=== PATIENT | female | born 1970 | race Caucasian/White ===

== ENCOUNTER 2017-11-30 19:15 | Emergency (ER) | payer OTHER ==
[2017-11-30 19:43] VITALS: BP 153/101; PULSE 88; TEMP 98; BMI 28.2
[2017-11-30] MEDS ORDERED: RABIES IMMUNE GLOBULIN 300 UNITS/2 ML VIAL IM ONE (19:44)
--- NOTE | 2017-11-30 19:44 | PDOC ---
Rapid Medical Evaluation Chief Complaint: Bite Medical Evaluation: 11/30/17 19:41 I have performed a brief in-person evaluation of this patient. The patient presents with a chief complaint of: coyote bite, patient utd with tetanus Pertinent physical exam findings: 3 puncture wounds to left posterior leg I have ordered the following: rabies shot The patient will proceed to the ED for further evaluation. Discharge Disposition - Diagnosis Animal bite - Referrals - Patient Instructions - Post Discharge Activity
[2017-11-30] MEDS ORDERED: IBUPROFEN 600 MG TABLET (FP) PO ONE (20:23)
[2017-11-30] MEDS ORDERED: CLINDAMYCIN HCL 150 MG CAPSULE (FP) ONE (20:25)
[2017-11-30] MEDS ORDERED: CLINDAMYCIN HCL 150 MG CAPSULE (FP) PO ONE (20:32)
[2017-11-30] MEDS ORDERED: RABIES VACCINE (PCEC)/PF 2.5 UNIT/VIAL IM ONE (20:33)
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
== END 2017-11-30 21:34 | disposition home or self-care (01) ==
LOC: JER 19:15
PROC: 3E0234Z Introduction of Serum, Toxoid and Vaccine into Muscle, Percutaneous Approach (ICD-10-PCS; principal; 2017-11-30)
PROC: 3E0234Z Introduction of Serum, Toxoid and Vaccine into Muscle, Percutaneous Approach (ICD-10-PCS; 2017-11-30)
DX: S71.151A Open bite, right thigh, initial encounter (principal); W64.XXXA Exposure to other animate mechanical forces, initial encounter; Y93.K1 Activity, walking an animal; Y92.89 Other specified places as the place of occurrence of the external cause; Y99.8 Other external cause status
CPT/HCPCS: 90375; 90675; 99281-25

== ENCOUNTER 2017-12-03 10:53 | Emergency (ER) | payer OTHER ==
[2017-12-03 11:04] VITALS: BP 131/84; PULSE 61; TEMP 97.9; BMI 29.0
[2017-12-03] MEDS ORDERED: RABIES VACCINE (PCEC)/PF 2.5 UNIT/VIAL IM ONE (11:17)
--- NOTE | 2017-12-03 11:48 | PDOC ---
History of Present Illness - General Chief Complaint: Revisit,Rabies Injection Stated Complaint: RABIES SHOT, FOLLOW UP Time Seen by Provider: 12/03/17 11:28 - History of Present Illness Initial Comments: 12/03/17 11:37 CHIEF COMPLAINT: HISTORY OF PRESENT ILLNESS: No recent travel or sick contacts. PAST MEDICAL HISTORY: Denies past medical history FAMILY HISTORY: Denies SOCIAL HISTORY: Lives at home with ____. Occupation: . Denies tobacco, alcohol, illicit drug use. SURGICAL HISTORY: Denies ALLERGIES: No known drug allergies REVIEW OF SYSTEMS General/Constitutional: Denies fever or chills. Denies weakness, weight change. HEENT: Denies change in vision. Denies ear pain or discharge. Denies sore throat. Cardiovascular: Denies chest pain or shortness of breath. Respiratory: Denies cough, wheezing, or hemoptysis. Gastrointestinal: Denies nausea, vomiting, diarrhea or constipation. Denies rectal bleeding. Genitourinary: Denies dysuria, frequency, or change in urination. Musculoskeletal: Denies joint or muscle swelling or pain. Denies neck or back pain. Skin and breasts: Denies rash or easy bruising. Neurologic: Denies headache, vertigo, loss of consciousness, or loss of sensation. Psychiatric: Denies depression or anxiety. Endocrine: Denies increased thirst. Denies abnormal weight change. Hematologic/Lymphatic: Denies anemia, easy bleeding, or history of blood clots. Allergic/Immunologic: Denies hives or skin allergy. Denies latex allergy. PHYSICAL EXAM General Appearance: Well-appearing, appropriately dressed. No apparent distress , no intoxication. HEENT: EOMI, PERRLA, normal ENT inspection, normal voice, TMs normal, pharynx normal. No conjunctival pallor. No photophobia, scleral icterus. Neck: Supple. Trachea midline. No tenderness, rigidity, carotid bruit, stridor , lymphadenopathy, or thyromegaly. Respiratory/Chest: Lungs CTAB. No shortness of breath, chest tenderness, respiratory distress, accessory muscle use. No crackles, rales, rhonchi, stridor , wheezing, dullness Cardiovascular: RRR. S1, S2. No JVD, murmur, bradycardia, tachycardia. Vascular Pulses: Dorsalis-Pedis (R): 2+, Dorsalis-Pedis (L): 2+ Gastrointestinal/Abdominal: Normal bowel sounds. Abdomen soft, non-distended. No tenderness or rebound tenderness. No organomegaly, pulsatile mass, guarding , hernia, hepatomegaly, splenomegaly. Lymphatic: No adenopathy, tenderness. Musculoskeletal/Extremities: Normal inspection. FROM of all extremities, normal capillary refill. Pelvis Stable. No CVA tenderness. No tenderness to extremities, pedal edema, swelling, erythema or deformity. Integumentary: Appropriate color, dry, warm. 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 Fully oriented, alert. Appropriate mood/affect. Motor strength 5/5. No appreciable EOM palsy, facial droop or sensory deficit. Past History - Past Medical History Allergies/Adverse Reactions: Allergies Allergy/AdvReac Type Severity Reaction Status Date / Time Cephalosporins Allergy Verified 12/03/17 11:04 Penicillins Allergy Verified 12/03/17 11:04 Home Medications: Ambulatory Orders Clindamycin [Cleocin -] 300 mg PO TID #21 capsule 11/30/17 Cyclobenzaprine HCl 10 mg PO HS PRN #7 tablet 12/03/17 Naproxen Sodium [Aleve] 220 mg PO BID #14 tablet 12/03/17 COPD: No Other medical history: PATIENT DENIES MEDICAL HX - Suicide/Smoking/Psychosocial Hx Smoking History: Never smoked Have you smoked in the past 12 months: No Hx Alcohol Use: Yes Drug/Substance Use Hx: No *Physical Exam - Vital Signs Last Vital Signs Temp Pulse Resp BP Pulse Ox 97.9 F 61 16 131/84 95 12/03/17 11:01 12/03/17 11:01 12/03/17 11:01 12/03/17 11:01 12/03/17 11:01 *DC/Admit/Observation/Transfer Diagnosis at time of Disposition: Rabies, need for prophylactic vaccination against - Discharge Dispostion Disposition: HOME Condition at time of disposition: Stable Admit: No - Prescriptions Prescriptions: Cyclobenzaprine HCl 10 mg PO HS PRN #7 tablet PRN Reason: Muscle Spasms Naproxen Sodium [Aleve] 220 mg PO BID #14 tablet - Referrals Referrals: Dwight Sheppard [Primary Care Provider] - - Patient Instructions Printed Discharge Instructions: DI for Rabies Vaccine, DI for Muscle Strain Additional Instructions: Please take medication as prescribed; do not drink alcohol, drive, or operate machinery while taking cyclobenzaprine. If your symptoms do not improve in 5-7 days, please follow up with an orthopedics for further evaluation and a possible MRI or physical therapy. If you experience any loss of sensation to your extremities, any loss of bowel or bladder function, any swelling or increased pain to your leg, please return to the ER. - Post Discharge Activity
== END 2017-12-03 12:05 | disposition home or self-care (01) ==
LOC: JERFT 10:53
DX: Z23 Encounter for immunization (principal); Z20.3 Contact with and (suspected) exposure to rabies
CPT/HCPCS: 90675; 99281-25

== ENCOUNTER 2017-12-05 09:16 | Emergency (ER) | payer OTHER ==
[2017-12-05 09:34] VITALS: BP 150/82; PULSE 70; TEMP 98.4; BMI 29.0
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
== END 2017-12-05 11:08 | disposition home or self-care (01) ==
LOC: JERFT 09:16
PROC: 3E0234Z Introduction of Serum, Toxoid and Vaccine into Muscle, Percutaneous Approach (ICD-10-PCS; principal; 2017-12-05)
DX: S91.352D Open bite, left foot, subsequent encounter (principal); W64.XXXD Exposure to other animate mechanical forces, subsequent encounter
CPT/HCPCS: 99281-25

== ENCOUNTER 2017-12-06 21:22 | Emergency (ER) | payer OTHER ==
[2017-12-06 21:34] VITALS: BP 145/99; PULSE 91; TEMP 98.7; BMI 30.9
--- NOTE | 2017-12-06 22:15 | PDOC ---
History of Present Illness - General Chief Complaint: Revisit,Rabies Injection Stated Complaint: RE VISIT/RABBIES SHOT Time Seen by Provider: 12/06/17 21:38 Past History - Past Medical History Allergies/Adverse Reactions: Allergies Allergy/AdvReac Type Severity Reaction Status Date / Time Cephalosporins Allergy Verified 12/06/17 21:31 Penicillins Allergy Verified 12/06/17 21:31 Home Medications: Ambulatory Orders Famotidine [Pepcid] 20 mg PO BID #20 tablet 12/05/17 COPD: No Other medical history: Pt denies - Suicide/Smoking/Psychosocial Hx Smoking History: Never smoked Have you smoked in the past 12 months: No Information on smoking cessation initiated: No Hx Alcohol Use: No Drug/Substance Use Hx: No Substance Use Type: None *Physical Exam - Vital Signs Last Vital Signs Temp Pulse Resp BP Pulse Ox 98.7 F 91 H 18 145/99 97 12/06/17 21:31 12/06/17 21:31 12/06/17 21:31 12/06/17 21:31 12/06/17 21:31 *DC/Admit/Observation/Transfer Diagnosis at time of Disposition: Rabies, need for prophylactic vaccination against - Discharge Dispostion Disposition: HOME Condition at time of disposition: Stable Admit: No - Referrals - Patient Instructions Printed Discharge Instructions: DI for Rabies Vaccine Additional Instructions: You came for your rabies vaccine today. The immunoglobulin difference was made up today and you have a shot given in your foot. Please return for your fourth shot a day ahead of schedule since he returned early today. Return to emergency department if you have fevers, chills, or have any changes in your symptoms. - Post Discharge Activity
[2017-12-06] MEDS ORDERED: RABIES IMMUNE GLOBULIN 300 UNITS/2 ML VIAL ONE (22:39)
== END 2017-12-06 23:01 | disposition home or self-care (01) ==
LOC: JER 21:22
PROC: 3E0134Z Introduction of Serum, Toxoid and Vaccine into Subcutaneous Tissue, Percutaneous Approach (ICD-10-PCS; principal; 2017-12-06)
DX: Z23 Encounter for immunization (principal); Z20.3 Contact with and (suspected) exposure to rabies; Z88.0 Allergy status to penicillin; Z88.8 Allergy status to other drugs, medicaments and biological substances
CPT/HCPCS: 99281-25

== ENCOUNTER 2017-12-14 16:24 | Emergency (ER) | payer OTHER ==
[2017-12-14 16:32] VITALS: BP 139/94; PULSE 64; TEMP 98; BMI 30.7
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
[2017-12-14] MEDS ORDERED: RABIES VACCINE (PCEC)/PF 2.5 UNIT/VIAL IM ONE (16:45)
--- NOTE | 2017-12-14 17:09 | PDOC ---
History of Present Illness - General Chief Complaint: Revisit,Rabies Injection Stated Complaint: RABIES SHOT Time Seen by Provider: 12/14/17 16:34 History Source: Patient Exam Limitations: No Limitations - History of Present Illness Initial Comments: 12/14/17 17:03 Patient here for fourth and final rabies vaccination. Wound is healing well, patient reports that she did not complete the antibiotics that were prescribed to her. There is no erythema, edema or secondary signs of infection. Severity: mild Past History - Past Medical History Allergies/Adverse Reactions: Allergies Allergy/AdvReac Type Severity Reaction Status Date / Time Cephalosporins Allergy Verified 12/14/17 16:32 Penicillins Allergy Verified 12/14/17 16:32 Home Medications: Ambulatory Orders Famotidine [Pepcid] 20 mg PO BID #20 tablet 12/05/17 COPD: No - Suicide/Smoking/Psychosocial Hx Smoking History: Never smoked Have you smoked in the past 12 months: No Hx Alcohol Use: No Drug/Substance Use Hx: No Substance Use Type: None Review of Systems - Review of Systems Constitutional: No: Symptoms Reported, Chills, Diaphoresis, Fever, Night Sweats Integumentary: No: Symptoms Reported, Erythema Neurological: No: Symptoms reported Hematologic/Lymphatic: No: Symptoms Reported All Other Systems: Reviewed and Negative *Physical Exam - Vital Signs Last Vital Signs Temp Pulse Resp BP Pulse Ox 98.0 F 64 18 139/94 98 12/14/17 16:29 12/14/17 16:29 12/14/17 16:29 12/14/17 16:29 12/14/17 16:29 - Physical Exam General Appearance: Yes: Appropriately Dressed. No: Apparent Distress Neck: negative: Tender lateral, Tender midline Respiratory/Chest: positive: Lungs Clear, Normal Breath Sounds Lymphatic: negative: Adenopathy Musculoskeletal: positive: Normal Inspection Extremity: positive: Normal Capillary Refill. negative: Swelling, Erythema, Inflammation Integumentary: negative: Erythema, Swelling, Ecchymosis, Bruising Neurologic: positive: Alert, Normal Mood/Affect Medical Decision Making - Medical Decision Making 12/14/17 17:10 A/P: Patient here for fourth and final rabies vaccination, given by [facility] [employer] TECHNICIAN. To follow-up as needed. Completed form faxed to the [facility]. *DC/Admit/Observation/Transfer Diagnosis at time of Disposition: Rabies, need for prophylactic vaccination against - Discharge Dispostion Disposition: HOME Condition at time of disposition: Stable Admit: No - Referrals Referrals: Dwight Sheppard [Primary Care Provider] - - Patient Instructions Printed Discharge Instructions: DI for Rabies Vaccine Additional Instructions: Rabies vaccinations and now complete, follow-up as needed. - Post Discharge Activity
== END 2017-12-14 17:22 | disposition home or self-care (01) ==
LOC: JERFT 16:24
PROC: 3E0234Z Introduction of Serum, Toxoid and Vaccine into Muscle, Percutaneous Approach (ICD-10-PCS; principal; 2017-12-14)
DX: Z23 Encounter for immunization (principal); Z20.3 Contact with and (suspected) exposure to rabies
CPT/HCPCS: 90675; 99281-25